=== PATIENT | male | born 1990 | race Caucasian/White ===

== ENCOUNTER 2019-01-14 16:12 | Emergency (ER) | payer OTHER ==
[~2019-01-14] VITALS: Ht 188 cm; Wt 81.7 kg
[2019-01-14 16:47] LABS: ABSOLUTE NEUTROPHILS 3.3 thou/uL (1.4-8.2); BASOPHILS 1.1 % (0.0-2.0); EOSINOPHILS 0.7 % (0.0-3.0); HEMATOCRIT 47.1 % (42.0-52.0); HEMOGLOBIN 16.1 gm/dL (14.0-18.0); LYMPHOCYTES 32.9 % (24.0-44.0); MCH 29.3 pg (26.0-34.0); MCHC 34.1 g/dL (28.0-37.0); MCV 85.8 fL (80.0-100.0); MONOCYTES 6.5 % (1.0-8.0); PLATELET COUNT 206 thou/uL (150-400); POLYS 58.8 % (36.0-66.0); RBC 5.49 mil/uL (4.50-6.00); RDW 13.4 % (10.5-14.5); WBC 5.6 thou/uL (4.0-11.0)
[2019-01-14 16:55] LABS: ANION GAP 10 mmol/L (7-16); BUN 11 mg/dL (7-18); CALCIUM 9.5 mg/dL (8.5-10.1); CHLORIDE 104 mmol/L (98-107); CO2 27 mmol/L (21-32); CREATININE 1.1 mg/dL (0.7-1.3); GLUCOSE 109 mg/dL (74-106); POTASSIUM 3.8 mmol/L (3.5-5.1); SODIUM 141 mmol/L (136-145)
[2019-01-14 17:04] LABS: TROPONIN-I <0.06 ng/mL (<0.06)
[2019-01-14 18:25] LABS: ALBUMIN 4.5 g/dL (3.4-5.0); DIRECT BILIRUBIN 0.1 mg/dL (<0.1-0.3); TOTAL BILIRUBIN 0.7 mg/dL (<0.1-1.0); TOTAL PROTEIN 7.9 g/dL (6.4-8.2)
[2019-01-14 19:18] VITALS: BP 120/77
--- NOTE | 2019-01-15 08:12 | EKG ---
[place] [address] [address] [facility] [place] [address] ELECTROCARDIOGRAM REPORT Name: IVÁN MARTE Room #: [id number] ������������������ Admission: 01/14/19 ������������������ Attend Phys: Discharge: 01/14/19 ������������������ Date of : 88 Report #: [id number] ����������������������������������������������������������������� [id number] THIS REPORT FOR: //name// [facility] ED Test Date: 2019-01-14 Test Time: 16:21:43 Pat Name: IVÁN MARTE Department: Room: Gender: M Siebel Consultant: KKODJOVI : 1990 Requested By: Margareth Skaggs Order Number: [id number] MD: Alvaro Black Measurements Intervals [place] Rate: 76 P: 54 PA: 153 QRS: 85 QRSD: 104 T: -2 QT: 377 QTc: 424 Interpretive Statements Sinus rhythm Borderline Q waves in lateral leads Baseline wander in lead(s) V3 No previous ECG available for comparison Electronically Signed On 01-15-2019 8:11:59 CDT by Alvaro Black [email or web address] ��������������������������������������������� <ELECTRONICALLY SIGNED> ���������������������������������������� By: Alvaro Black MD ��������������������������������������������� 01/15/19 0811 D: 05/1620 20 Alvaro Black MD /[email or web address]
== END 2019-01-14 19:18 | disposition home or self-care (01) ==
LOC: ER 16:12
PROVIDERS: Physician Assistant
DX: R07.89 Other chest pain (principal); R20.2 Paresthesia of skin; F32.9 Major depressive disorder, single episode, unspecified; F41.9 Anxiety disorder, unspecified; J45.909 Unspecified asthma, uncomplicated; J32.9 Chronic sinusitis, unspecified; L40.9 Psoriasis, unspecified; Z88.1 Allergy status to other antibiotic agents; Z88.8 Allergy status to other drugs, medicaments and biological substances; Z88.5 Allergy status to narcotic agent; Z88.2 Allergy status to sulfonamides